=== PATIENT | female | born 2000 | race Caucasian/White ===

== ENCOUNTER → 2020-12-06 08:55 | Outpatient (CLI) | payer OTHER, SELFPAY ==
--- NOTE | ~2020-12-06 | MR_ITS ---
EXAMINATION: MR lumbar spine wo/w con DATE: 12/06/2020 09:52 INDICATION: Lumbar spine fusion. Low back pain. TECHNIQUE: Magnetic resonance imaging (MRI) of the lumbar spine was performed without and with 15 mL MultiHance intravenous contrast. Sequences included sagittal T2-weighted FSE, sagittal STIR FSE, and sagittal and axial T1-weighted FSE. Postcontrast sequences included axial T2-weighted FSE and axial a nd sagittal T1-weighted FS FSE. COMPARISON: Lumbar spine MRI 11/24/2019 FINDINGS: There is 3 mm anterolisthesis of L5 on S1. There are changes of anterior and posterior fusi on procedures at L5-S1 with interbody devices and pedicle screws. Vertebral body heights and interver tebral disc heights are normal. The distal spinal cord signal intensity is normal. The conus medullar is is at L1. The following disc levels are specifically discussed: L1-L2: The disc does not extend beyond the endplate margin. There is mild bilateral facet joint osteo arthritis. There is no neural foraminal stenosis. There is no central canal stenosis. L2-L3: The disc does not extend beyond the endplate margin. There is mild bilateral facet joint osteo arthritis. There is no neural foraminal stenosis. There is no central canal stenosis. L3-L4: The disc does not extend beyond the endplate margin. There is mild bilateral facet joint osteo arthritis. There is no neural foraminal stenosis. There is no central canal stenosis. L4-L5: The disc is bulging. There is mild bilateral facet joint osteoarthritis. There is mild bilater al neural foraminal stenosis. There is mild central canal stenosis. L5-S1: There is no facet joint hypertrophy. There is no neural foraminal stenosis. There is no centra l canal stenosis with posterior decompression. IMPRESSION: 1. Stable mild lumbar spondylosis. 2. Anterior and posterior fusion procedures at L5-S1. Reviewed, dictated and finalized at location B. [employer]
--- NOTE | ~2020-12-06 | CT_ITS ---
EXAMINATION: CT lumbar spine wo con DATE: 12/06/2020 10:00 INDICATION: Fusion of lumbar spine. Low back pain. TECHNIQUE: Computed tomography (CT) of the lumbar spine was performed without intravenous contrast. A utomated exposure control and iterative reconstruction technique were employed. The dose-length produ ct was 728.60 mGy-cm. COMPARISON: Lumbar spine MRI 11/24/2019 FINDINGS: There is 3 mm anterolisthesis of L5 on S1. There are changes of anterior and posterior fusi on procedures at L5-S1 with interbody devices, healed interbody bone graft, and pedicle screws. At L5 , there are changes of laminectomy and resection of the inferior facets. Vertebral body heights and i ntervertebral disc heights are normal. The following disc levels are specifically discussed: L1-L2: The disc does not extend beyond the endplate margin. There is mild bilateral facet joint osteo arthritis. There is no neural foraminal stenosis. There is no central canal stenosis. L2-L3: The disc does not extend beyond the endplate margin. There is mild bilateral facet joint osteo arthritis. There is no neural foraminal stenosis. There is no central canal stenosis. L3-L4: The disc does not extend beyond the endplate margin. There is mild bilateral facet joint osteo arthritis. There is no neural foraminal stenosis. There is no central canal stenosis. L4-L5: The disc is bulging. There is mild bilateral facet joint osteoarthritis. There is mild bilater al neural foraminal stenosis. There is mild central canal stenosis. L5-S1: There is no facet joint hypertrophy. There is no neural foraminal stenosis. There is no centra l canal stenosis. IMPRESSION: 1. Mild lumbar spondylosis. 2. Anterior and posterior fusion procedures at L5-S1. Reviewed, dictated and finalized at location B. STEWARD
[2020-12-06 09:23] LABS: Estimated Glomerular Filt Rate > 60
== END ==
PROVIDERS: Visit Provider Nurse Practitioner Family
DX: M43.26 Fusion of spine, lumbar region (principal); M47.816 Spondylosis without myelopathy or radiculopathy, lumbar region
CPT/HCPCS: 72131; 72158; A9577

== ENCOUNTER → 2021-08-27 10:14 | Outpatient (CLI) | payer OTHER, SELFPAY ==
--- NOTE | ~2021-08-27 | MR_ITS ---
EXAMINATION: MR cervical spine wo con DATE: 08/27/2021 11:45 INDICATION: Neck pain TECHNIQUE: Magnetic resonance imaging (MRI) of the cervical spine was performed without intravenous c ontrast. Sequences included sagittal T2-weighted FSE, sagittal T2-weighted FS FSE, sagittal T1-weight ed FSE, axial MERGE and axial T2-weighted FSE. COMPARISON: None FINDINGS: Straightening of the normal cervical lordosis. Vertebral body heights are normal. Bone marrow signa l intensity is normal. Mild disc height loss at C4-C5, minimal at C2-C3, C5-C6 and C6-C7. Cord signal intensity is normal. Cervical soft tissues are unremarkable. The following disc levels are specifica lly discussed: C2-C3: Disc is minimally bulging. There is no uncovertebral joint osteoarthritis. There is moderate l eft and mild to moderate right facet joint osteoarthritis. There is no neural foraminal stenosis. The re is no central canal stenosis. C3-C4: Disc is bulging. There is mild left uncovertebral joint osteoarthritis. There is moderate righ t and mild to moderate left facet joint osteoarthritis. There is mild left neural foraminal stenosis. There is mild central canal stenosis. C4-C5: Disc is bulging. There is no uncovertebral joint osteoarthritis. There is mild right and moder ate left facet joint osteoarthritis. There is no neural foraminal stenosis. There is mild central can al stenosis. C5-C6: Disc is bulging. There is mild bilateral uncovertebral joint osteoarthritis. There is mild chidi ateral facet joint osteoarthritis. There is no neural foraminal stenosis. There is mild central canal stenosis. C6-C7: Disc is mildly bulging. There is mild left uncovertebral joint osteoarthritis. There is mild b ilateral facet joint osteoarthritis. There is no neural foraminal stenosis. There is no central canal stenosis. C7-T1: The disc does not extend beyond the endplate margin. There is no uncovertebral joint osteoarth ritis. There is mild bilateral facet joint osteoarthritis. There is no neural foraminal stenosis. The re is no central canal stenosis. IMPRESSION: 1. Mild cervical spondylosis. Reviewed, dictated and finalized at location A.
--- NOTE | ~2021-08-27 | XR_ITS ---
XR cervical spine min 6V DATE: 08/27/2021 11:13 INDICATION: Cervical pain TECHNIQUE: AP, open-mouth, lateral, bilateral oblique views. Flexion and extension lateral views. COMPARISON: None FINDINGS: There is reversal of cervical curvature. C1 and C2 are normally aligned and the odontoid pr ocess is intact. No fracture or dislocation or locked facet or prevertebral soft tissue swelling. The cervical interspaces are well preserved. There is no bony encroachment upon the neural foramina. The re is no instability on flexion or extension. IMPRESSION: Reversal of cervical curvature; otherwise negative Reviewed, dictated and finalized at location A.
== END ==
PROVIDERS: Visit Provider Nurse Practitioner Family
DX: M47.892 Other spondylosis, cervical region (principal)
CPT/HCPCS: 72052; 72141

== ENCOUNTER → 2023-05-08 13:25 | Outpatient (CLI) | payer OTHER, SELFPAY ==
--- NOTE | ~2023-05-08 | MR_ITS ---
MRI of the lumbar spine Clinical History: Radiculopathy Technique: Axial T2-weighted images, and sagittal T1-weighted, T2-weighted, and STIR images were acqu ired. Findings: There is posterior fusion from L5 to S1, with bilateral rods and transpedicular screws pres ent. There is L5-S1 interbody fusion device, as well as L5 laminectomy. No acute fracture or subluxat ion evident. No suspicious bone marrow signal reality seen. At L1-L2, L2-L3, L3-L4, there is no disc bulge or herniation. There are moderate facet joint degenera tive changes at these levels. No spinal canal stenosis or neural foraminal narrowing at these levels. At L4-L5, there is diffuse disc bulge with moderate to advanced facet arthropathy. No central canal s tenosis. There is minimal bilateral neural foraminal narrowing. At L5-S1, there is no central canal stenosis. No disc bulge or herniation evident. Bilateral neural f oramina are probably preserved. Paravertebral soft tissues are unremarkable. Impression: Postoperative changes at the L5-S1 level, as detailed above. Minimal degenerative changes, as detailed above. Reviewed, dictated and finalized at [facility]. Impression: Postoperative changes at the L5-S1 level, as detailed above. Minimal degenerative changes, as detailed above.
== END ==
PROVIDERS: PCP Family Medicine; Visit Provider Nurse Practitioner Family
DX: M54.16 Radiculopathy, lumbar region (principal)
CPT/HCPCS: 72148

== ENCOUNTER → 2023-12-06 15:10 | Outpatient (CLI) | payer OTHER, SELFPAY ==
--- NOTE | ~2023-12-06 | MR_ITS ---
EXAMINATION: MR lumbar spine wo con DATE: 12/06/2023 15:35 INDICATION: Lumbar radicular pain. Low back pain. TECHNIQUE: Magnetic resonance imaging (MRI) of the lumbar spine was performed without intravenous con trast. COMPARISON: Lumbar spine MRI 05/08/2023, 12/06/20 FINDINGS: Bone alignment is normal. There is mild chronic height loss of L5 vertebral body posteriorl y. There are changes of anterior and posterior fusion procedures at L5-S1 with interbody devices and pedicle screws. There is mildly decreased disc height at L4-L5. The distal spinal cord signal intensi ty is normal. The conus medullaris is at L1. The following disc levels are specifically discussed: L1-L2: The disc does not extend beyond the endplate margin. There is mild bilateral facet joint osteo arthritis. There is no neural foraminal stenosis. There is no central canal stenosis. L2-L3: There is a right foraminal protrusion. There is mild bilateral facet joint osteoarthritis. The re is mild right neural foraminal stenosis. There is no central canal stenosis. L3-L4: The disc is mildly bulging. There is moderate right and mild left facet joint osteoarthritis. There is mild bilateral neural foraminal stenosis. There is no central canal stenosis. L4-L5: The disc is bulging and has an annular fissure. There is moderate bilateral facet joint hypert rophy. There is moderate right and mild left neural foraminal stenosis. There is mild central canal s tenosis. L5-S1: There is no facet joint hypertrophy. There is no neural foraminal stenosis. There is no centra l canal stenosis. There is posterior decompression. IMPRESSION: 1. Moderate spondylosis at L4-L5, stable from 05/08/2023. Mild spondylosis at other levels. 2. Anterior and posterior fusion procedures at L5-S1. Reviewed, dictated and finalized at location E. LY ASSESSMENT WORKER IMPRESSION: 1. Moderate spondylosis at L4-L5, stable from 05/08/2023. Mild spondylosis at ot her levels. 2. Anterior and posterior fusion procedures at L5-S1.
== END ==
PROVIDERS: PCP Nurse Practitioner Family; Visit Provider Nurse Practitioner Family
DX: M54.16 Radiculopathy, lumbar region (principal); M43.06 Spondylolysis, lumbar region; Z98.1 Arthrodesis status
CPT/HCPCS: 72148

== ENCOUNTER 2025-01-31 09:50 | Outpatient (CLI) | payer BC, SELFPAY ==
--- NOTE | ~2025-01-31 | MR_ITS ---
MRI of the lumbar spine Clinical History: Back pain, radiculopathy Technique: Axial T2-weighted images, and sagittal T1-weighted, T2-weighted, and T2 fat-sat images wer e acquired. COMPARISON: 12/06/2023 Findings: Posterior and interbody fusion from L5 to S1 is unchanged with bilateral rods and transpedi cular screws, as well as interbody fusion device. Posterior decompression at L5 is unchanged. No acut e fracture or subluxation. Osseous alignment unchanged. No suspicious bone marrow signal abnormality seen. At L1-L2, L2-L3, L3-L4, there are no significant disc bulges or herniations. There are mild to modera te facet joint degenerative changes at these levels. No spinal canal stenosis or neural foraminal antonio rowing at these levels. At L4-L5, there is disc desiccation with diffuse disc bulge and moderate facet arthropathy. No centra l canal stenosis. There is moderate bilateral neural foraminal narrowing. At L5-S1, there is no spinal canal stenosis or definite neural foraminal narrowing. Paravertebral soft tissues are unremarkable, aside from expected postoperative changes. Impression: Postoperative change at L5-S1, as detailed above, stable from prior exam. Moderate bilateral neural foraminal narrowing at L4-L5, with underlying degenerative change, as above . Reviewed, dictated and finalized at [facility]. Impression: Postoperative change at L5-S1, as detailed above, stable from prior exam. Moderate bilateral neural foraminal narrowing at L4-L5, with underlying degener ative change, as above.
== END 2025-01-31 09:51 | disposition home or self-care (01) ==
PROVIDERS: PCP Family Medicine
DX: M48.061 Spinal stenosis, lumbar region without neurogenic claudication (principal); M47.816 Spondylosis without myelopathy or radiculopathy, lumbar region; Z98.1 Arthrodesis status
CPT/HCPCS: 72148

== ENCOUNTER 2025-10-11 13:54 | Outpatient (CLI) | payer BC, SELFPAY ==
--- NOTE | ~2025-10-11 | MR_ITS ---
EXAMINATION: MR lumbar spine wo/w con DATE: 10/11/2025 14:54 INDICATION: Other low back pain. TECHNIQUE: Magnetic resonance imaging (MRI) of the lumbar spine was performed without and with 17 mL MultiHance intravenous contrast. COMPARISON: Lumbar spine MRI 01/31/2025 FINDINGS: There is 3 mm anterolisthesis of L5 on S1. There are changes of anterior and posterior fusion procedures at L5-S1 with interbody devices and pedicle screws. There is mild chronic height loss of L4 vertebral body posteriorly. There is mildly decreased disc height at L4-L5. The distal spinal cord signal intensity is normal. The conus medullaris is at L1. The following disc levels are specifically discussed: L1-L2: There is a central protrusion. There is mild bilateral facet joint osteoarthritis. There is no neural foraminal stenosis. There is mild central canal stenosis. L2-L3: The disc is mildly bulging. There is mild bilateral facet joint osteoarthritis. There is mild bilateral neural foraminal stenosis. There is mild central canal stenosis. L3-L4: The disc is mildly bulging. There is moderate right and mild left facet joint osteoarthritis. There is mild right neural foraminal stenosis. There is mild central canal stenosis. L4-L5: The disc is bulging and has an annular fissure. There is mild bilateral facet joint osteoarthritis. There is moderate right and mild left neural foraminal stenosis. There is mild central canal stenosis. L5-S1: There is no facet joint hypertrophy. There is no neural foraminal stenosis. There is no central canal stenosis. There is posterior decompression. IMPRESSION: 1. Moderate right neural foraminal stenosis at L4-L5, stable from 01/31/2025. Otherwise mild lumbar spondylosis. 2. Anterior and posterior fusion procedures at L5-S1. Reviewed, dictated and finalized at location E. TRIC ACCOUNTING MACHINE OPERATOR IMPRESSION: 1. Moderate right neural foraminal stenosis at L4-L5, stable from 01/31/2025. Ot herwise mild lumbar spondylosis. 2. Anterior and posterior fusion procedures at L5-S1.
== END 2025-10-11 13:55 | disposition home or self-care (01) ==
PROVIDERS: PCP Family Medicine; Visit Provider Nurse Practitioner Family
DX: M48.061 Spinal stenosis, lumbar region without neurogenic claudication (principal); Z98.1 Arthrodesis status
CPT/HCPCS: 72158; A9577